=== PATIENT | male | born 1950 | race Caucasian/White ===

== ENCOUNTER 2019-09-25 09:09 | Outpatient (CLI) | payer MEDICARE, SELFPAY ==
[2019-09-25 10:38] LABS: Alanine Aminotransferase 18 U/L (4-50); Albumin Level 4.1 g/dL (3.5-5.1); Alkaline Phosphatase 61 U/L (38-126); Aspartate Amino Transferase 20 U/L (17-59); Bilirubin,Total 0.6 mg/dL (0.2-1.3); Blood Urea Nitrogen 15 mg/dL (9-20); Carbon Dioxide 28 mmol/L (22-30); Chloride 104 mmol/L (98-107); Cholesterol 227 mg/dL (0-200); Estimated Glomerular Filt Rate > 60; Glucose 106 mg/dL (75-110); HDL Direct 38 mg/dL; Potassium 3.4 mmol/L (3.4-5.0); Sodium 142 mmol/L (137-145); Triglycerides 123 mg/dL (<150)
[2019-09-25 10:49] LABS: LDL Cholesterol Direct 164 mg/dL
[2019-09-25 11:08] LABS: Prostate Specific Antigen 1.1 ng/mL (< OR = 4.0)
== END 2019-09-25 09:10 | disposition home or self-care (01) ==
PROVIDERS: PCP Nurse Practitioner Adult Health; Visit Provider Nurse Practitioner Adult Health
DX: E78.5 Hyperlipidemia, unspecified (principal); I10 Essential (primary) hypertension; R35.1 Nocturia
CPT/HCPCS: 36415; 80048; 80061; 80076; 84153

== ENCOUNTER 2019-10-12 10:00 | Outpatient (RCR) | payer MEDICARE, SELFPAY ==
--- NOTE | 2019-08-12 14:51 | STOPEVAL ---
Thank you for referring this patient to [facility]. Speech Therapy is recommended 1-2x/week x 3 weeks to focus on improving higher level thought organization and pragmatic communication such as verbosity, turn taking, and impulsivity. Please review, sign, date and return this plan of care ELVI. I agree with and certify that the following plan of care is medically necessary. 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 which is where pt was weaned off trach and had rehabilitation. Pt was admitted to [facility] x 16 days and [facility] x 14 days. Pt also has PEG tube due to severe dysphagia associated with CVA; however, pt has
--- NOTE | 2019-08-12 15:40 | PTOPEVAL ---
PHYSICAL THERAPY EVALUATION AND PLAN OF CARE Thank you for referring this patient to [facility]. Dickson will be scheduled 2x/week for 4 weeks for physical therapy. Please review, sign, date and return this plan of care ELVI. I agree with and certify that the following plan of care is medically necessary. Referring Physician Date Attending Provider: Elle Vega, CLOCK AND WATCH HANDS MOUNTER Outpatient Past Medical History Neurological History Hx Cerebrovascular Accident (CVA) Yes: April cerebellar w/ cranietomy Cardiovascular History Hx Hypertension Yes Respiratory History Hx Sleep Apnea Yes: getting a bipap Hx Tracheostomy Yes: s/p trach subsequent CVA Hx Other Respiratory Disorders Yes: trach removed after 3 1/2 weeks Gastrointestinal History Hx Other Gastrointestinal Disorders Yes: PEG r/t recent dysphagia; resolved Genitourinary History Hx Kidney Stones Yes Evaluation Information Problem Diagnosis CVA Onset 04/2019 Subjective Information Dickson experienced a CVA in Query Text:As Reported By Patient/ April 2019. He reports that Family overall he feels he is doing well, but does have almost falls and falls from moving too quickly. He has a goal to use just a cane Previous Treatments Previous Treatments For This Problem Physical Therapy during acute medical admission, at [facility]. Pain Score 0: Self Report General Lower Extremity Range of Motion WNL/Left,WNL/Right General Lower Extremity Strength WFL/Left,WFL/Right Gross Lower Extremity Strength mild hip abduction and extension strenth deficit: 4/5 bilaterally Muscle Length Testing Muscle Length Testing Left Hamstring Length -50 Query Text:(90 - 90 Position) Right Hamstring Length -50 Query Text:(90 - 90 Position) Balance Assessment Kiran Balance Assessment Sitting to Standing Independent w/Hands Unsupported Stance Ability Supervision- 2 minutes Sitting Unsupported, Feet on Floor Safely- 2 minutes Standing to Sitting Safely, Minimal Hand Use Transfer Ability Safely, Hand Use Unsupported Stance- Eyes Closed Supervision, 10 seconds Unsupported Stance- Feet Together Independent, 1 minute Reaching Forward while Standing Supervision 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
[2019-08-24 14:02] VITALS: O2SAT 75
[2019-08-31 17:14] VITALS: O2SAT 80
--- NOTE | 2019-09-03 15:17 | STOPEVAL ---
Thank you for referring this patient to [facility]. The pt. is exhibiting improvement in all areas and warrants continued speech therapy as his goal is to return to work. ST is recommended x1 week 3. Please review, sign, date and return this plan of care ELVI. I agree with and certify that the following plan of care is medically necessary. Referring Physician Date Admitting Provider: Attending Provider: Elle Vega, COMMERCIAL COORDINATOR Referring Provider: * Outpatient Evaluation Start: 08/12/19 13:42 Freq: Status: Active Protocol: Document 09/03/19 13:29 BECHERERT (Rec: 09/03/19 15:09 BECHERERT [email or web address]) Therapy Assessment Status Assessment Status Assessment Status Re-evaluation Outpatient Past Medical History Neurological History Hx Cerebrovascular Accident (CVA) Yes: April cerebellar w/ cranietomy Cardiovascular History Hx Hypertension Yes Respiratory History Hx Sleep Apnea Yes: getting a bipap Hx Tracheostomy Yes: s/p trach subsequent CVA Hx Other Respiratory Disorders Yes: trach removed after 3 1/2 weeks Gastrointestinal History Hx Other Gastrointestinal Disorders Yes: PEG r/t recent dysphagia; resolved Genitourinary History Hx Kidney Stones Yes Pain Assessment Timing of Pain Assessment Timing of Pain Assessment Re-assessment Self Report Self Report Pain Level 0 Pain Scale Pain Scale Used Numeric (1 - 10) Pain Score Pain Score 0: Self Report Cognitive Evaluation Orientation/Memory Assessment Immediate Memory 100 Query Text:% Accuracy Recent Memory 100 Query Text:% Accuracy Remote Memory 100 Query Text:% Accuracy Temporal Orientation 100 Query Text:% Accuracy Spatial/Environmental Orientation 100 Query Text:% Accuracy Overall Orientation and Memory No Impairment Problem Solving Simple Problem Solving: Percent of 100 Accuracy 0-100 (%) Thought Organization Sequencing: Percent of Accuracy 0-100 (% 100 ) Categorizing: Percent of Accuracy 0-100 100 (%) Functional Reading: Percent of Accuracy 100 0-100 (%) Overall Thought Organization Ability WFL Thought Organization Comments Impulsivity & verbosity not exhibited on this date and overall WFL Dysarthria Evaluation Intelligibility Polysyllabic Word Production 100 Intelligibility (%) Phrase Production Intelligibility (%) 100 Conversational Level Speech 96 Intelligibility (%) Consis
--- NOTE | 2019-09-10 13:16 | PTOPEVAL ---
PHYSICAL THERAPY PLAN OF CARE UPDATE AND PROGRESS REPORT Thank you for referring this patient to [facility] Dickson will continue with skilled PT 1x/week for 4 weeks. Please review, sign, date and return this plan of care ELVI. I agree with and certify that the following plan of care is medically necessary. Referring Physician Date Attending Provider: Elle Vega, BROADCAST CHECKER Re-evaluation Outpatient Past Medical History Neurological History Hx Cerebrovascular Accident (CVA) Yes: April cerebellar w/ cranietomy Cardiovascular History Hx Hypertension Yes Respiratory History Hx Sleep Apnea Yes: getting a bipap Hx Tracheostomy Yes: s/p trach subsequent CVA Hx Other Respiratory Disorders Yes: trach removed after 3 1/2 weeks Gastrointestinal History Hx Other Gastrointestinal Disorders Yes: PEG r/t recent dysphagia; resolved Genitourinary History Hx Kidney Stones Yes Evaluation Information Diagnosis CVA Onset 04/2019 Subjective Information Dickson reports today that he Query Text:As Reported By Patient/ is doing well. Stopped using Family cane 1 week ago. Does projects in the basement for his . He goes to water aerobics 2x/ week at [facility] Self Report Pain Level 0/10 Balance Assessment Sitting to Standing Independent w/out Hands Unsupported Stance Ability Safely- 2 minutes Sitting Unsupported, Feet on Floor Safely- 2 minutes Standing to Sitting Safely, Minimal Hand Use Transfer Ability Safely, Minimal Hand Use Unsupported Stance- Eyes Closed Safely, 10 seconds Unsupported Stance- Feet Together Independent, 1 minute Reaching Forward while Standing Safely, 5 inches support services manager Object From Floor Independent/Safe Look Behind Shoulder - Standing Shifts Weight Well Turning 360 Degrees Turns slowly, but safely Unsupported Stance, Alternating Feet on 4 Steps w/Supervision Stair Unsupported Tandem Stance Small Step- 30 seconds Unilateral Leg Stance Lifts Leg/Unable to Hold DOW Balance Evaluation Total Score (/56 46 points) Time Up Go (TUG) Timed Up and Go Test (TUG) (Seconds) 9 Assistive Devices None Comments improved from 14 seconds 5 Time Sit to Stand Time in Seconds 11.12 5 Time Sit to Stand Comments improved from 15seconds Query Text:Normative Data: If Greater Than 15 Seconds, 74% Increase Risk for Recurrent Falls Gait Assessment Gait Pattern Ataxic Gait Other Gait Observations mild ataxia on occasion - good
[2019-09-10 14:32] VITALS: O2SAT 80; O2SAT 86
--- NOTE | 2019-09-21 15:49 | STOPEVAL ---
SPEECH THERAPY DISCHARGE: Thank you for referring this patient to [facility]. Mr Rodas has completed 8 speech therapy visits which focused on improving articulatory precision and cognitive-linguistic functioning. Upon reassessment and discussion with patient, no further speech therapy will be completed at this time. Please review, sign, date and return this discharge ELVI. I agree with and certify that the following plan of care is medically necessary. Referring Physician Date Attending Provider: Elle Vega, BARREL FILLER Referring Provider: MALINDA Outpatient Evaluation Start: 08/12/19 13:42 Freq: Status: Active Protocol: Document 09/21/19 15:41 BECHERERT (Rec: 09/21/19 15:49 BECHERERT [email or web address]) Therapy Assessment Status Assessment Status Assessment Status Discharge Outpatient Past Medical History Neurological History Hx Cerebrovascular Accident (CVA) Yes: April cerebellar w/ cranietomy Cardiovascular History Hx Hypertension Yes Respiratory History Hx Sleep Apnea Yes: getting a bipap Hx Tracheostomy Yes: s/p trach subsequent CVA Hx Other Respiratory Disorders Yes: trach removed after 3 1/2 weeks Gastrointestinal History Hx Other Gastrointestinal Disorders Yes: PEG r/t recent dysphagia; resolved Genitourinary History Hx Kidney Stones Yes Pain Assessment Timing of Pain Assessment Timing of Pain Assessment Re-assessment Self Report Self Report Pain Level 0 Pain Scale Pain Scale Used Numeric (1 - 10) Pain Score Pain Score 0: Self Report Cognitive Evaluation Orientation/Memory Assessment Immediate Memory 100 Query Text:% Accuracy Recent Memory 100 Query Text:% Accuracy Remote Memory 100 Query Text:% Accuracy Temporal Orientation 100 Query Text:% Accuracy Spatial/Environmental Orientation 100 Query Text:% Accuracy Overall Orientation and Memory No Impairment Problem Solving Complex Problem Solving: Percent of 90 Accuracy 0-100 (%) Overall Problem Solving Skills WFL Thought Organization Sequencing: Percent of Accuracy 0-100 (% 100 ) Categorizing: Percent of Accuracy 0-100 100 (%) Functional Math: Percent of Accuracy 0- 90 100 (%) Functional Reading: Percent of Accuracy 100 0-100 (%) Overall Thought Organization Ability WFL Dysarthria Evaluation Intelligibility Polysyllabic Word Production 100 Intelligibility (%) Phrase Production Intelligibility (%) 100 Conversational Level Speech 95 Intelligibility (%)
--- NOTE | 2019-10-07 12:31 | PCPTNOTE ---
Patient called & cancelled scheduled appointment this date. No reason given.
--- NOTE | 2019-10-12 11:19 | PTOPEVAL ---
PHYSICAL THERAPY DISCHARGE REPORT Thank you for referring this patient to [facility] [place]Note 2]. Dickson has met his functional goals and demonstrates WNL for all gait and balance tests performed. His vision continues to give him some difficulty. He is following-up with college service officer on Saturday10/14/2019. Please review, sign, date and return this discharge summary ELVI. I agree with and certify that the following plan of care is medically necessary. Referring Physician Date Attending Provider: Elle Vega, BRAINER Discharge Diagnosis CVA Onset 04/2019 Subjective Information reports he doing well except Query Text:As Reported By Patient/ continues to have difficulty Family with vision and blurry vision. Pain Assessment Timing of Pain Assessment Timing of Pain Assessment Pre-Treatment Self Report Self Report Pain Level 0 Pain Score Pain Score 0: Self Report Lower Extremity Muscle Strength Testing General Lower Extremity Strength Reason Not Measured WFL/Left,WFL/Right Gross Lower Extremity Strength mild hip abduction and extension strenth deficit: 4+/ 5 bilaterally Balance Assessment Sitting to Standing Independent w/out Hands Unsupported Stance Ability Safely- 2 minutes Sitting Unsupported, Feet on Floor Safely- 2 minutes Standing to Sitting Safely, Minimal Hand Use Transfer Ability Safely, Minimal Hand Use Unsupported Stance- Eyes Closed Safely, 10 seconds Unsupported Stance- Feet Together Independent, 1 minute Reaching Forward while Standing Confidently, 10 inches follow up specialist Object From Floor Independent/Safe Look Behind Shoulder - Standing Shifts Weight Well Turning 360 Degrees Turns Bilateral, < 4 secs Unsupported Stance, Alternating Feet on (I)- 8 Steps in 20 secs Stair Unsupported Tandem Stance Holds Tandem- 30 seconds Unilateral Leg Stance Lifts Leg/Holds > 3 secs DOW Balance Evaluation Total Score (/56 53 points) Time Up Go (TUG) Timed Up and Go Test (TUG) (Seconds) 8 Assistive Devices None Comments improved from 9 seconds 5 Time Sit to Stand Time in Seconds 10.37 5 Time Sit to Stand Comments improved from 11.12seconds Query Text:Normative Data: If Greater Than 15 Seconds, 74% Increase Risk for Recurrent Falls Gait Assessment 6 Minute Walk Total Distance (feet) 1,480 6 Minute Gait Comments previously 1287 without AD; 4. 1ft/sec \ Clinical Summary Dickson has participated in physical therapy for 11weeks for balance and strength training following CVA. He
== END 2019-10-12 12:13 | disposition home or self-care (01) ==
LOC: ANHPT 10:00
PROVIDERS: PCP Nurse Practitioner Adult Health; Visit Provider Nurse Practitioner Adult Health
DX: I69.319 Unspecified symptoms and signs involving cognitive functions following cerebral infarction (principal); I69.328 Other speech and language deficits following cerebral infarction
CPT/HCPCS: 92507; 96125; 97110; 97116; 97129; 97130; 97162; 97530

== ENCOUNTER 2020-04-26 09:15 | Outpatient (CLI) | payer MEDICARE, SELFPAY ==
[2020-04-26 10:09] LABS: Alanine Aminotransferase 18 U/L (4-50); Alkaline Phosphatase 73 U/L (38-126); Anion Gap 6 mmol/L (8-16); Aspartate Amino Transferase 22 U/L (17-59); Bilirubin,Total 0.8 mg/dL (0.2-1.3); Blood Urea Nitrogen 17 mg/dL (9-20); Calcium 9.3 mg/dL (8.4-10.2); Carbon Dioxide 32 mmol/L (22-30); Chloride 107 mmol/L (98-107); Cholesterol 169 mg/dL (0-200); Estimated Glomerular Filt Rate > 60; Glucose 113 mg/dL (75-110); HDL Direct 37 mg/dL; Potassium 4.1 mmol/L (3.4-5.0); Sodium 145 mmol/L (137-145); Triglycerides 72 mg/dL (<150)
[2020-04-26 10:29] LABS: LDL Cholesterol Direct 125 mg/dL
[2020-04-26 10:50] LABS: Prostate Specific Antigen 1.1 ng/mL (< OR = 4.0)
== END 2020-04-26 09:16 | disposition home or self-care (01) ==
PROVIDERS: PCP Nurse Practitioner Adult Health; Visit Provider Nurse Practitioner Adult Health
DX: R35.1 Nocturia (principal); E78.5 Hyperlipidemia, unspecified; I10 Essential (primary) hypertension
CPT/HCPCS: 36415; 80048; 80061; 80076; 84153

== ENCOUNTER 2021-02-09 11:38 | Outpatient (CLI) | payer MEDICARE, SELFPAY ==
[2021-02-09 12:16] LABS: Anion Gap 7 mmol/L (8-16); Blood Urea Nitrogen 15 mg/dL (9-20); Calcium 9.1 mg/dL (8.4-10.2); Carbon Dioxide 25 mmol/L (22-30); Chloride 108 mmol/L (98-107); Cholesterol 228 mg/dL (0-200); Estimated Glomerular Filt Rate > 60; Glucose 103 mg/dL (75-110); HDL Direct 40 mg/dL; Potassium 3.8 mmol/L (3.4-5.0); Sodium 140 mmol/L (137-145); Triglycerides 78 mg/dL (<150)
[2021-02-09 12:26] LABS: LDL Cholesterol Direct 142 mg/dL
== END 2021-02-09 11:39 | disposition home or self-care (01) ==
LOC: ANHLAB 11:41
PROVIDERS: PCP Nurse Practitioner Adult Health; Visit Provider Nurse Practitioner Adult Health
DX: E78.5 Hyperlipidemia, unspecified (principal); I10 Essential (primary) hypertension
CPT/HCPCS: 36415; 80048; 80061